=== PATIENT | female | born 1995 | race Caucasian/White ===

== ENCOUNTER 2020-11-03 02:28 | Outpatient (CLI) | payer OTHER ==
[~2020-11-03 02:28] MED LIST: COLACE 100MG C100 MG PO; FLEXERIL 10 MG10 MG PO; IBUPROFEN600 MG PO; OMEPRAZOLE20 MG PO; PERCOCET 5/325 T1 EA PO; ZANTAC150 MG PO
== END 2020-11-03 06:38 | disposition home or self-care (01) ==
LOC: GENOP 02:28
DX: O62.9 Abnormality of forces of labor, unspecified (principal); O99.891 Other specified diseases and conditions complicating pregnancy; R25.2 Cramp and spasm; Z3A.36 36 weeks gestation of pregnancy
CPT/HCPCS: 81001; G0463

== ENCOUNTER 2020-11-06 03:33 | Outpatient (CLI) | payer OTHER | END 2020-11-06 08:44 | disposition home or self-care (01) | LOC: GENOP 03:33 | DX: O62.9 Abnormality of forces of labor, unspecified (principal); Z3A.36 36 weeks gestation of pregnancy | CPT/HCPCS: 81001; 83518; 96360; 96365; J2300 ==

== ENCOUNTER 2020-11-15 01:37 | Inpatient (IN) | payer OTHER ==
[2020-11-15 03:23] LABS: HEMOGLOBIN 10.7 gm/dl (12.3-15.3); RED BLOOD COUNT 3.68 M/UL (4.00-5.10); WHITE BLOOD COUNT 13.6 K/UL (4.5-11.0)
[2020-11-15] MEDS ORDERED: DOCUSATE SODIU100 MG PO (05:02)
[2020-11-15] MEDS ORDERED: IBUPROFEN600 MG PO (05:02)
[2020-11-16 06:14] LABS: HEMOGLOBIN 9.4 gm/dl (12.3-15.3)
[2020-11-16] MEDS ORDERED: HYDROCODON-ACE1 EAC4 PO (14:03)
[2020-11-16] MEDS ORDERED: IBUPROFEN800 MG PO (14:03)
[2020-11-16] MEDS ORDERED: COLACE100 MG PO (14:04)
== END 2020-11-16 11:43 | disposition home or self-care (01) | DRG 806 ==
LOC: GENOP 01:37 → OB 03:15
PROVIDERS: ADMIT Obstetrics & Gynecology
PROC: 0HQ9XZZ Repair Perineum Skin, External Approach (ICD-10-PCS; principal; 2020-11-15)
PROC: 4A1HXCZ Monitoring of Products of Conception, Cardiac Rate, External Approach (ICD-10-PCS; 2020-11-15)
PROC: 10E0XZZ Delivery of Products of Conception, External Approach (ICD-10-PCS; 2020-11-15)
DX: O98.32 Other infections with a predominantly sexual mode of transmission complicating childbirth (principal); O99.354 Diseases of the nervous system complicating childbirth; Z37.0 Single live birth; G43.909 Migraine, unspecified, not intractable, without status migrainosus; A60.09 Herpesviral infection of other urogenital tract; Z3A.37 37 weeks gestation of pregnancy; Z20.822 Contact with and (suspected) exposure to COVID-19; O70.0 First degree perineal laceration during delivery
CPT/HCPCS: 36415; 82800; 85014; 85018; 85025; 90471; 90715; J2590; J2795; J3010; U0002

== ENCOUNTER 2021-09-25 14:12 | Outpatient (CLI) | payer OTHER ==
[~2021-09-25 14:12] MED LIST changes: +COLACE100 MG PO; +DOCUSATE SODIU100 MG PO; +HYDROCODON-ACE1 EAC4 PO; +IBUPROFEN800 MG PO
== END 2021-09-25 20:45 | disposition home or self-care (01) ==
LOC: GENOP 14:12
DX: O21.2 Late vomiting of pregnancy (principal); Z87.891 Personal history of nicotine dependence; Z91.040 Latex allergy status; Z3A.31 31 weeks gestation of pregnancy
CPT/HCPCS: 81001; 96360; J2550; J7120

== ENCOUNTER 2021-11-21 21:56 | Inpatient (IN) | payer OTHER ==
[~2021-11-21] VITALS: Ht 170.2 cm; Wt 88.5 kg
[2021-11-21 23:22] LABS: HEMOGLOBIN 10.6 gm/dl (12.3-15.3); RED BLOOD COUNT 3.53 M/UL (4.00-5.10); WHITE BLOOD COUNT 11.6 K/UL (4.5-11.0)
[2021-11-21] MEDS ORDERED: CEPHALEXIN500 MG PO (23:40)
[2021-11-21] MEDS ORDERED: FEROSUL325 MG PO (23:40)
[2021-11-21] MEDS ORDERED: VALACYCLOVIR1000 MG PO (23:41)
[2021-11-21] MEDS ORDERED: ONDANSETRON HCL4 MG PO (23:41)
[2021-11-22] MEDS ORDERED: IBUPROFEN600 MG PO (06:58)
[2021-11-22] MEDS ORDERED: DOCUSATE SODIU250 MG PO (06:58)
[2021-11-23 07:13] LABS: HEMOGLOBIN 8.8 gm/dl (12.3-15.3)
[2021-11-23] MEDS ORDERED: HYDROCODON-ACE1 EAC4 PO (19:27)
== END 2021-11-23 20:10 | disposition home or self-care (01) | DRG 806 ==
LOC: GENOP 21:56 → OB 22:04
PROVIDERS: ADMIT Obstetrics & Gynecology
PROC: 10E0XZZ Delivery of Products of Conception, External Approach (ICD-10-PCS; principal; 2021-11-22)
PROC: 3E033VJ Introduction of Other Hormone into Peripheral Vein, Percutaneous Approach (ICD-10-PCS; 2021-11-22)
PROC: 0HQ9XZZ Repair Perineum Skin, External Approach (ICD-10-PCS; 2021-11-22)
PROC: 3E0234Z Introduction of Serum, Toxoid and Vaccine into Muscle, Percutaneous Approach (ICD-10-PCS; 2021-11-22)
DX: O98.32 Other infections with a predominantly sexual mode of transmission complicating childbirth (principal); D62 Acute posthemorrhagic anemia; Z37.0 Single live birth; O99.02 Anemia complicating childbirth; A60.09 Herpesviral infection of other urogenital tract; O70.0 First degree perineal laceration during delivery; Z3A.39 39 weeks gestation of pregnancy; Z28.310 Unvaccinated for COVID-19; Z23 Encounter for immunization
CPT/HCPCS: 81001; 85014; 85018; 85025; 90715; J2405; J2590; J3010; J7120

== ENCOUNTER 2022-03-27 08:02 | Emergency (ER) | payer OTHER ==
[~2022-03-27 08:02] MED LIST changes: +CEPHALEXIN500 MG PO; +DOCUSATE SODIU250 MG PO; +FEROSUL325 MG PO; +ONDANSETRON HCL4 MG PO; +VALACYCLOVIR1000 MG PO
== END 2022-03-27 08:05 | disposition left against medical advice (07) ==
LOC: ER1 08:02
DX: Z53.21 Procedure and treatment not carried out due to patient leaving prior to being seen by health care provider (principal)